=== PATIENT | female | born 1990 | race Caucasian/White ===

== ENCOUNTER 2020-02-01 09:30 | Emergency (ER) | payer OTHER, SELFPAY ==
[2020-02-01 09:46] VITALS: BP 137/94; PULSE 96; RESP 16; TEMP 37.3; O2SAT 99
--- NOTE | 2020-02-01 09:48 | ED.SKABFB ---
HPI - Skin/Abscess/Foreign Bdy General Chief complaint: Skin/Abscess/Foreign Body Stated complaint: swelling/painful/itchy left side of face Time Seen by Provider: 02/01/20 09:49 Source: patient Mode of arrival: ambulatory Limitations: no limitations History of Present Illness HPI narrative: Soraya Mathew is a 29 yo female with no PMH who comes to express care with small rash on L side of face. Started on Thurs- tender to touch, non pruritic, swelling around area Related Data Allergies Allergy/AdvReac Type Severity Reaction Status Date / Time amoxicillin [From Augmentin] Allergy Rash Verified 02/01/20 09:52 cefaclor [From Ceclor] Allergy Rash Verified 02/01/20 09:51 clavulanic acid Allergy Rash Verified 02/01/20 09:52 [From Augmentin] nitrofurantoin Allergy Rash Verified 02/01/20 09:52 [From Macrobid] Review of Systems Review of Systems: Narrative: CONSTITUTIONAL: Denies fever, chills, sweats. EYES: Denies visual changes, redness, discharge. ENT: Denies rhinorrhea, congestion, sore throat, otalgia. CARDIOVASCULAR: Denies chest pain, palpitations, edema. RESPIRATORY: Denies dyspnea, wheezing, cough GASTROINTESTINAL: Denies abdominal pain, nausea, vomiting, diarrhea. GENITOURINARY: Denies dysuria, hematuria, abnormal discharge SKIN: Denies rash or itching. Rash on left lower side of face NEUROLOGIC: Denies numbness, or focal weakness. PSYCHIATRIC: Denies anxiety or depression. PMFSH Past Medical History Medical History No active medical problems Family History Family History (Updated 02/01/20 @ 09:58 by Camille Nolasco CNP) Other No active medical problems Social History Social History (Updated 02/01/20 @ 09:58 by Camille Nolasco CNP) Smoking status: Never smoker Alcohol intake: current Comments At time of signature, I agree with nursing past medical, surgical, social and family history. There is no relevant family history pertinent to the presenting complaint. Blood pressure mildly elevated discussed with patient Exam Narrative: Exam Narrative: GENERAL: This is a well-nourished, well-developed patient, in mild distress. HEAD: normocephalic, atraumatic. EYES: Sclera clear/white. Vision is grossly intact. EARS: External ears normal,. Hearing grossly intact. NOSE: External nose normal without nasal discharge, nares without redness, no rhinorrhea. THROAT: Mucous membranes moist, NECK: Neck supple, CARDIOVASCULAR: Regular rate and rhythm without murmurs, gallops, or rubs. RESPIRATORY: Clear to auscultation. Breath sounds equal bilaterally. No wheezes, rales, or rhonchi. GASTROINTESTINAL: Abdomen soft, non-tender, SKIN: warm, intact with a red clustered tender rash with this dryness and scabbing, good texture and turgor. NEURO: awake, alert, and oriented to person, place and time. There were no obvious focal neurologic abnormalities. Steady gait EXTREMITIES: Normal range of motion. BACK: Nontender without deformity Course Course Emergency Course: Start started on mupirocin and acyclovir-discussed infection control and blood pressure elevation with patient Follow-up with primary care physician when she returns to [place] Vital Signs Vital signs: Vital Signs Temperature 99.1 F 02/01/20 09:46 Pulse Rate 96 02/01/20 09:46 Respiratory Rate 16 02/01/20 09:46 Blood Pressure 137/94 H 02/01/20 09:46 Pulse Oximetry 99 02/01/20 09:46 Temperature 99.1 F 02/01/20 09:46 Pulse Rate 96 02/01/20 09:46 Respiratory Rate 16 02/01/20 09:46 Blood Pressure 137/94 H 02/01/20 09:46 Pulse Oximetry 99 02/01/20 09:46 MDM - Skin/Abscess/Foreign Bdy Differential Diagnosis Differential diagnosis: Likely urticaria, cellulitis, eczema, insect bites, contact dermatitis and other Discharge Plan Discharge Clinical Impression: Herpes zoster Qualifiers: Herpes zoster complications: without complications Qualified
== END 2020-02-01 10:07 | disposition home or self-care (01) ==
PROVIDERS: Emergency Provider Nurse Practitioner
DX: B02.9 Zoster without complications (principal)
CPT/HCPCS: 99203; G0463